=== PATIENT | female | born 1935 | race Caucasian/White ===

== ENCOUNTER → 2016-10-18 | Outpatient (CLI) | payer MEDICARE, OTHER ==
--- NOTE | 2016-10-18 14:03 | BD ---
EXAMINATION TYPE: MG DEXA axial skeleton. DATE OF EXAM: 10/18/2016 1:24 PM COMPARISON: NONE CLINICAL HISTORY: Height: 64 Weight: 174.8 FRAX RISK QUESTIONS: Alcohol (3 or more units per day): NO Family History (Parent hip fracture): NO Glucocorticoids (More than 3mos): YES (Ex: prednisone, prednisolone, methylprednisolone, dexamethasone, and hydrocortisone). History of Fracture in Adulthood: YES Secondary Osteoporosis: 1. Type 1 Diabetes: NO 2. Hyperthyroidism: NO 3. Menopause before 45: NO 4. Malnutrition: NO 5. Chronic liver disease: NO Rheumatoid Arthritis: NO Current Tobacco Use: NO RISK FACTORS HISTORY OF: Hip Fracture (Right/Left): NO Spine Fracture: NO History of Wrist Fracture: NO Surgery to Spine/Hip(right/left)/Wrist (right/left): NO Family History of Osteoporosis: NO Active: NO Diet low in dairy products/other sources of calcium: NO Postmenopausal woman: HYSTERECTOMY AT AGE 47 If Premenopausal, do you have irregular periods: Lost more than 2 inches in height since high school: YES Frequent falls: NO Adrenal Insufficiency: NO MEDICATIONS: Prednisone or other steroids: STEROIDS FOR ASTHMA/ SINUS Additional Medications: HYZAAR EXAM MEASUREMENTS: Bone mineral densitometry was performed using the [employer] System. Bone mineral density as measured about the Lumbar spine is: ----- L1-L4(G/cm2): 1.028 T Score Values are as follows: ----- L2: -2.6 ----- L3: -1.3 ----- L4: 0.3 ----- L1-L4: -1.3 Bone mineral density BASELINE HERE Bone mineral density about the R hip (g/cm2): 0.760 Bone mineral density about the L hip (g/cm2): 0.710 T Score values are as follows: -----R Neck: -2.0 -----L Neck: -2.4 -----R Intertrochanter: -1.7 -----L Intertrochanter: -2.4 Bone mineral density BASELINE HERE IMPRESSION: Osteopenia (T Score between -2.5 and -1 as noted by T score values overall in both hips and low back. There is slightly increased risk of fracture and the patient may be considered for treatment. Re-Screen 1-2 years. NOTE: T-SCORE=SD OF THE YOUNG ADULT MEAN.
== END | disposition home or self-care (01) ==
LOC: RADBDWWP 12:49
PROVIDERS: ATTEND Family Medicine
DX: M85.89 Other specified disorders of bone density and structure, multiple sites (principal)
CPT/HCPCS: 77080

== ENCOUNTER → 2017-04-20 | Outpatient (CLI) | payer MEDICARE, OTHER ==
[~2017-04-20] MED LIST: REGADENOSON 0.4 MG/5 ML SYRINGE IV ONE
--- NOTE | 2017-04-20 11:31 | NM ---
EXAMINATION TYPE: NM stress lexiscan cardiolite DATE OF EXAM: 04/20/2017 COMPARISON: NONE HISTORY: Chest pain TECHNIQUE: After the intravenous administration of 9.7 mCi Tc 99m Sestamibi - Cardiolite resting SPE CT images acquired 45 minutes post injection. The patient received 0.4mg Lexiscan, 24.5 mCi Tc 99m Sestamibi - Stress images obtained [address] injection FINDINGS: Review of stress and rest SPECT images demonstrates no distinct perfusion abnormality. Gated analysi s shows normal wall motion with an estimated left ventricular ejection fraction of 68 %. IMPRESSION: No scintigraphic evidence for reversible ischemia.
--- NOTE | 2017-04-20 12:40 | P.STRESS ---
- Stress Test Note Stress Test Results/Findings: Exam Performed: Exam Date: Height: 0 in Weight: 0 g Protocol: Stage: Duration of Exercise: Resting Heart Rate: Resting Blood Pressure: Maximum Achieved Heart Rate: Maximum Achieved Blood Pressure: 85% PMHR: 100% PMHR: METS: Technologist Comment: Stress Test Results/Findings: Baseline rhythm is sinus mechanism with incomplete right bundle branch block. Patient received injection of Lexiscan, EKG monitoring showed no ischemic ST segment changes. Cardiolite was injected per protocol. Impression: 1. Non diagnostic EKG stress test. 2. Nuclear images will be reported separately.
--- NOTE | 2017-04-21 12:20 | P.STRESS ---
- Stress Test Note Stress Test Results/Findings: Exam Performed: NM stress lexiscan cardiolite Exam Date: 04/20/17 Height: 5 ft 4 in Weight: 79.379 kg Protocol: Lexiscan Stage: N/A Duration of Exercise: 4:00 Resting Heart Rate: 64 Resting Blood Pressure: 151/98 Maximum Achieved Heart Rate: 93 Maximum Achieved Blood Pressure: 163/96 85% PMHR: 118 100% PMHR: 139 METS: N/A Technologist Comment: Stress Test Results/Findings: Baseline rhythm is sinus mechanism with incomplete right bundle branch block. Patient received injection of Lexiscan. EKG monitoring revealed no acute ST segment changes. Cardiolite is injected per protocol. Impression: 1. Nondiagnostic electrocardiographic stress test. 2. Nuclear images will be reported separately.
== END | disposition home or self-care (01) ==
LOC: RADNMMAIN 08:27
PROVIDERS: ATTEND Family Medicine
DX: J45.909 Unspecified asthma, uncomplicated (principal); I10 Essential (primary) hypertension
CPT/HCPCS: 93017; 78452; A9500; J2785

== ENCOUNTER 2018-11-12 12:15 | Inpatient (IN) | payer MEDICARE, OTHER ==
[2018-11-12] MEDS ORDERED: SODIUM CHLORIDE 0.9% 500 ML 500 ML IV STA (12:59)
--- NOTE | 2018-11-12 13:08 | ED ---
General Adult HPI - General Chief complaint: Shortness of Breath Stated complaint: AFIB Time Seen by Provider: 11/12/18 12:33 Source: patient Mode of arrival: EMS Limitations: no limitations - History of Present Illness Initial comments: Dictation was produced using [employer] dictation software. please excuse any grammatical, word or spelling errors. Chief Complaint: 83-year-old female recently diagnosed atrial fibrillation presents with generalized fatigue and weakness. History of Present Illness: Patient is 83-year-old female. She was found to have new onset atrial fibrillation starting 2 weeks ago. Primary care physician Dr. Chicas started her on eliquis and carvedilol. Patient states over the last 2-3 days she's been having progressive weakness. She states that she is so weak that she is having difficulty putting on her clothes. Patient denies any pain complaints. She denies any lower extremity symptoms. She does report that with exertion she becomes slightly short of breath. Denies any cough. No fever, chills or night sweats. The ROS documented in this emergency department record has been reviewed and confirmed by me. Those systems with pertinent positive or negative responses have been documented in the HPI. All other systems are other negative and/or noncontributory. PHYSICAL EXAM: General Impression: Alert and oriented x3, not in acute distress HEENT: Normocephalic atraumatic, extra-ocular movements intact, pupils equal and reactive to light bilaterally, mucous membranes moist. Cardiovascular: irRegularly irregular Chest: Lungs clear to auscultation bilaterally, no rhonchi, no wheeze, no rales Abdomen: Bowel sounds present, abdomen soft, non-tender, non-distended, no organomegaly Musculoskeletal: Pulses present and equal in all extremities, 1+ pitting edema bilateral lower extremities. Motor: Power 5/5 bilaterally, no focal deficits noted Neurological: CN II-XII grossly intact, no focal motor or sensory deficits noted Skin: Intact with no visualized rashes Psych: Normal affect and mood ED course: Patient is 83-year-old female presents with generalized weakness. On arrival shows heart rate 133, rest of vital signs within acceptable limits. EKG shows atrial for ablation with rapid ventricular rate. Patient's symptoms likely secondary to uncontrolled atrial fibrillation. Patient is unable course.CBC, coag panel, metabolic panel, cardiac enzymes are negative. Chest x- ray shows findings of congestive heart failure. Given 5 mg of IV push and metoprolol with improvement of heart rate. Patient continued to be slightly above 110 with a heart rate of 118. Patient given a return half milligrams IV push. Patient's heart rate is controlled. Patient given venous fluids. Patient also provided with by mouth metoprolol. We will have patient admitted for cardiology consultation. Patient will be continued on her eliquis. EKG interpretation: Ventricular rate 137 A. fib with RVR, QRS 102, QTc 462. No ID prolongation, no QTC prolongation, no ST or T-wave changes noted. Overall , this EKG is unremarkable - Related Data Home Medications Medication Instructions Recorded Confirmed Albuterol Inhaler [Ventolin Hfa 2 puff INHALATION RT-Q4H PRN 11/12/18 11/12/18 Inhaler] Beclomethasone Dipropionate [Qvar 2 puff INHALATION RT-BID 11/12/18 11/12/18 80 mcg] Carvedilol [Coreg] 3.125 mg PO BID 11/12/18 11/12/18 Cholecalciferol [Vitamin D3] 1,000 unit PO DAILY 11/12/18 11/12/18 Diclofenac Potassium [Cataflam] 50 mg PO BID PRN 11/12/18 11/12/18 Losartan Potassium [Cozaar] 100 mg PO DAILY 11/12/18 11/12/18 Multivitamins, Thera [Multivitamin 1 tab PO DAILY 11/12/18 11/12/18 (formulary)] Phytonadione [Vitamin K] 5 mg PO DAILY 11/12/18 11/12/18 Rivaroxaban [Xarelto] 20 mg PO DAILY 11/12/18 11/12/18 Allergies Allergy/AdvReac Type Severity Reaction Status Date / Time No Known Allergies Allergy Verified 11/12/18 12:41 Review of Systems ROS Statement: Those systems with pertinent positive or pertinent negative responses have been documented in the HPI. ROS Other: All systems not noted in ROS Statement are negative. Past Medical History Past Medical History: Atrial Fibrillation, Hypertension History of Any Multi-Drug Resistant Organisms: None Reported Past Surgical History: Hysterectomy Additional Past Surgical History / Comment(s): Shoulder sx, R ankle Past Psychological History: No Psychological Hx Reported Smoking Status: Never smoker General Exam Limitations: no limitations Course Vital Signs 02/01/2511/12/18 11/12/18 12:16 14:09 14:32 Temperature 97.5 F L Pulse Rate 133 H 130 H 118 H Respiratory 18 18 18 Rate Blood Pressure 152/116 121/106 141/113 O2 Sat by Pulse 98 97 98 Oximetry Medical Decision Making - Lab Data Result diagrams: 11/12/18 12:18 11/12/18 12:18 Lab Results 11/12/18 11/12/18 11/12/18 Range/Units 12:18 12:18 12:18 WBC 9.5 (3.8-10.6) k/uL RBC 5.32 (3.80-5.40) m/uL Hgb 15.6 (11.4-16.0) gm/dL Hct 48.2 H (34.0-46.0) % MCV 90.5 (80.0-100.0) fL MCH 29.4 (25.0-35.0) pg MCHC 32.4 (31.0-37.0) g/dL RDW 13.5 (11.5-15.5) % Plt Count 397 (150-450) k/uL Neutrophils % 73 % Lymphocytes % 17 % Monocytes % 6 % Eosinophils % 2 % Basophils % 1 % Neutrophils # 7.0 (1.3-7.7) k/uL Lymphocytes # 1.6 (1.0-4.8) k/uL Monocytes # 0.5 (0-1.0) k/uL Eosinophils # 0.2 (0-0.7) k/uL Basophils # 0.1 (0-0.2) k/uL PT (9.0-12.0) sec INR (<1.2) APTT (22.0-30.0) sec Sodium 138 (137-145) mmol/L Potassium 4.8 (3.5-5.1) mmol/L Chloride 105 (98-107) mmol/L Carbon Dioxide 26 (22-30) mmol/L Anion Gap 7 mmol/L BUN 18 H (7-17) mg/dL Creatinine 0.90 (0.52-1.04) mg/dL Est GFR (CKD-EPI)AfAm 69 (>60 ml/min/1.73 sqM) Est GFR (CKD-EPI)NonAf 60 (>60 ml/min/1.73 sqM) Glucose 104 H (74-99) mg/dL Calcium 9.2 (8.4-10.2) mg/dL Magnesium 2.2 (1.6-2.3) mg/dL Total Bilirubin 0.9 (0.2-1.3) mg/dL AST 36 (14-36) U/L ALT 57 H (9-52) U/L Alkaline Phosphatase 60 (38-126) U/L Total Creatine Kinase 54 (30-135) U/L CK-MB (CK-2) 0.7 (0.0-2.4) ng/mL CK-MB (CK-2) Rel Index 1.3 Troponin I <0.012 (0.000-0.034) ng/mL Total Protein 6.5 (6.3-8.2) g/dL Albumin 3.9 (3.5-5.0) g/dL 11/12/18 Range/Units 12:18 WBC (3.8-10.6) k/uL RBC (3.80-5.40) m/uL Hgb (11.4-16.0) gm/dL Hct (34.0-46.0) % MCV (80.0-100.0) fL MCH (25.0-35.0) pg MCHC (31.0-37.0) g/dL RDW (11.5-15.5) % Plt Count (150-450) k/uL Neutrophils % % Lymphocytes % % Monocytes % % Eosinophils % % Basophils % % Neutrophils # (1.3-7.7) k/uL Lymphocytes # (1.0-4.8) k/uL Monocytes # (0-1.0) k/uL Eosinophils # (0-0.7) k/uL Basophils # (0-0.2) k/uL PT 11.2 (9.0-12.0) sec INR 1.1 (<1.2) APTT 24.6 (22.0-30.0) sec Sodium (137-145) mmol/L Potassium (3.5-5.1) mmol/L Chloride (98-107) mmol/L Carbon Dioxide (22-30) mmol/L Anion Gap mmol/L BUN (7-17) mg/dL Creatinine (0.52-1.04) mg/dL Est GFR (CKD-EPI)AfAm (>60 ml/min/1.73 sqM) Est GFR (CKD-EPI)NonAf (>60 ml/min/1.73 sqM) Glucose (74-99) mg/dL Calcium (8.4-10.2) mg/dL Magnesium (1.6-2.3) mg/dL Total Bilirubin (0.2-1.3) mg/dL AST (14-36) U/L ALT (9-52) U/L Alkaline Phosphatase (38-126) U/L Total Creatine Kinase (30-135) U/L CK-MB (CK-2) (0.0-2.4) ng/mL CK-MB (CK-2) Rel Index Troponin I (0.000-0.034) ng/mL Total Protein (6.3-8.2) g/dL Albumin (3.5-5.0) g/dL Disposition Clinical Impression: Atrial fibrillation with RVR Disposition: ADMITTED IP TO THIS HOSP Condition: Fair Referrals: Raine Chicas MD [Primary Care Provider] - 1-2 days Decision Time: 15:27
[2018-11-12] MEDS ORDERED: METOPROLOL TARTRATE 5 MG/5 ML VIAL IVP STA ×2 (13:25→15:24)
--- NOTE | 2018-11-12 13:45 | XR ---
EXAMINATION TYPE: XR chest 2V DATE OF EXAM: 11/12/2018 COMPARISON: NONE TECHNIQUE: PA and lateral views submitted. HISTORY: Shortness of breath FINDINGS: Diffuse interstitial pattern with bilateral consolidation and pleural effusions. Atherosclerotic reeves ge aorta. No pneumothorax. Postsurgical change bilateral shoulder. Degenerative change of the spine. IMPRESSION: 1. Correlate for CHF.
[2018-11-12 13:58] LABS: Basophils # (A) 0.1 k/uL (0-0.2); Basophils % (A) 1 %; Eosinophils # (A) 0.2 k/uL (0-0.7); Eosinophils % (A) 2 %; HCT 48.2 % (34.0-46.0); HGB 15.6 gm/dL (11.4-16.0); Lymphocytes # (A) 1.6 k/uL (1.0-4.8); Lymphocytes % (A) 17 %; MCH 29.4 pg (25.0-35.0); MCHC 32.4 g/dL (31.0-37.0); MCV 90.5 fL (80.0-100.0); Mean Platelet Volume 6.6; Monocytes # (A) 0.5 k/uL (0-1.0); Monocytes % (A) 6 %; Neutrophils % (A) 73 %; Platelet Count 397 k/uL (150-450); RBC 5.32 m/uL (3.80-5.40); RDW 13.5 % (11.5-15.5); WBC 9.5 k/uL (3.8-10.6)
[2018-11-12 14:09] LABS: Albumin 3.9 g/dL (3.5-5.0); Calcium 9.2 mg/dL (8.4-10.2); Magnesium 2.2 mg/dL (1.6-2.3); Potassium 4.8 mmol/L (3.5-5.1); Total Bilirubin 0.9 mg/dL (0.2-1.3); Total Protein 6.5 g/dL (6.3-8.2)
[2018-11-12 14:14] LABS: INR 1.1 (<1.2); Partial Thromboplastin Time 24.6 sec (22.0-30.0); Prothrombin Time 11.2 sec (9.0-12.0)
[2018-11-12 14:20] LABS: Creatine Kinase 54 U/L (30-135)
[2018-11-12 14:33] LABS: Creatine Kinase MB 0.7 ng/mL (0.0-2.4); Troponin I <0.012 ng/mL (0.000-0.034)
[2018-11-12] MEDS ORDERED: METOPROLOL TARTRATE 50 MG TAB PO STA (15:25)
[2018-11-12] MEDS ORDERED: ALBUTEROL NEBULIZED 2.5 MG/3 ML INHALATION PRN (15:39)
--- NOTE | 2018-11-12 15:59 | P.HPIM ---
History of Present Illness H&P Date: 11/12/18 This is a 83-year-old female patient of Dr. Chicas. Patient presented to the hospital with complaints of increased weakness and shortness of breath. Patient states she was recently diagnosed by her PCP approximately 2 weeks ago with atrial fibrillation. At that time patient was started on xarelto and Coreg by her PCP and arrange to see [facility]. Patient states that over the 2 weeks she's been increasing short of breath and chest tightness. Patient does have a significant past medical history for essential hypertension , hysterectomy, asthma and bilateral shoulder surgery. Patient's EKG completed showing A. fib with RVR premature ventricular response. Incomplete right bundle branch block. Per ER patient's menstrual changed to metoprolol. Cardiology services have been consulted. Chest x-ray completed showing correlation for CHF. At this time patient is still complaining of weakness shortness of breath. Patient Xarelto has been resumed. Patient denies nausea vomiting or diarrhea. Patient denies any cough or production. Patient did not denies fever or chills. Denies any urinary burning or frequency Review of Systems please refer to HPI otherwise unremarkable Past Medical History Past Medical History: Atrial Fibrillation, Hypertension History of Any Multi-Drug Resistant Organisms: None Reported Past Surgical History: Hysterectomy Additional Past Surgical History / Comment(s): Shoulder sx, R ankle Past Psychological History: No Psychological Hx Reported Smoking Status: Never smoker Medications and Allergies Home Medications Medication Instructions Recorded Confirmed Type Albuterol Inhaler [Ventolin Hfa 2 puff INHALATION RT-Q4H PRN 11/12/18 11/12/18 History Inhaler] Beclomethasone Dipropionate [Qvar 2 puff INHALATION RT-BID 11/12/18 11/12/18 History 80 mcg] Carvedilol [Coreg] 3.125 mg PO BID 11/12/18 11/12/18 History Cholecalciferol [Vitamin D3] 1,000 unit PO DAILY 11/12/18 11/12/18 History Diclofenac Potassium [Cataflam] 50 mg PO BID PRN 11/12/18 11/12/18 History Losartan Potassium [Cozaar] 100 mg PO DAILY 11/12/18 11/12/18 History Multivitamins, Thera [Multivitamin 1 tab PO DAILY 11/12/18 11/12/18 History (formulary)] Phytonadione [Vitamin K] 5 mg PO DAILY 11/12/18 11/12/18 History Rivaroxaban [Xarelto] 20 mg PO DAILY 11/12/18 11/12/18 History Allergies Allergy/AdvReac Type Severity Reaction Status Date / Time No Known Allergies Allergy Verified 11/12/18 12:41 Physical Exam Vitals: Vital Signs Temp Pulse Resp BP Pulse Ox 11/12/18 14:32 118 H 18 141/113 98 11/12/18 14:09 130 H 18 121/106 97 11/12/18 12:16 97.5 F L 133 H 18 152/116 98 Intake and Output 11/12/18 11/12/18 11/12/18 06:59 14:59 22:59 Other: Weight 79.379 kg Head normocephalic Neck supple Lungs clear to auscultation bilaterally no wheezing or crackles Heart regular rate and rhythm S1-S2, no rub or gallop Abdomen is soft nontender nondistended positive bowel sounds no hepatosplenomegaly Extremities no edema Neuro alert and orientated to 3 Results CBC & Chem 7: 11/12/18 12:18 11/12/18 12:18 Labs: Abnormal Lab Results - Last 24 Hours (Table) 11/12/18 11/12/18 Range/Units 12:18 12:18 Hct 48.2 H (34.0-46.0) % BUN 18 H (7-17) mg/dL Glucose 104 H (74-99) mg/dL ALT 57 H (9-52) U/L Assessment and Plan Assessment: 1. Shortness of breath. This is likely due to patient new-onset A. fib. EKG showing atrial fibrillation with rapid ventricular response. Chest x-ray showing correlation for CHF. BNP has been order. 2. Recently diagnosed atrial fibrillation. Patient currently on xaretlo for anticoagulation. Cardiology services have been consulted. Metroprolol has been added 3. History of essential hypertension 4. History of asthma 5. Increased peripheral edema. BNP has been ordered DVT prophylaxis xarelto. GI prophylaxis Protonix Cardiology and pulmonary services consulted Time with Patient: Greater than 30 (Greater than 60% of the total time spent in counseling and coordination of care. I performed an examination of the patient and discussed their management with the Nurse Practitioner. I have reviewed the Nurse Practitioner's notes and agree with the documented findings and plan of care)
[2018-11-12] MEDS ORDERED: LORATADINE 10 MG TAB PO PRN (20:41)
[2018-11-12] MEDS ORDERED: FUROSEMIDE 10 MG/ML 2 ML VIAL IV ONE (20:42)
[2018-11-12] MEDS: METOPROLOL TARTRATE 25 MG TAB PO SCH (20:58)
[2018-11-12] MEDS: FLUTICASONE 110 MCG INHALER INHALATION SCH (21:54)
[2018-11-13 06:32] LABS: Basophils # (A) 0.1 k/uL (0-0.2); Basophils % (A) 1 %; Eosinophils # (A) 0.2 k/uL (0-0.7); Eosinophils % (A) 2 %; HCT 41.6 % (34.0-46.0); HGB 13.4 gm/dL (11.4-16.0); Lymphocytes # (A) 1.7 k/uL (1.0-4.8); Lymphocytes % (A) 21 %; MCH 29.4 pg (25.0-35.0); MCHC 32.2 g/dL (31.0-37.0); MCV 91.2 fL (80.0-100.0); Mean Platelet Volume 6.7; Monocytes # (A) 0.6 k/uL (0-1.0); Monocytes % (A) 7 %; Neutrophils # (A) 5.4 k/uL (1.3-7.7); Neutrophils % (A) 67 %; Platelet Count 332 k/uL (150-450); RBC 4.56 m/uL (3.80-5.40); RDW 13.6 % (11.5-15.5)
[2018-11-13] MEDS: PANTOPRAZOLE 40 MG TABLET PO SCH (06:40)
[2018-11-13 06:51] LABS: Albumin 2.9 g/dL (3.5-5.0); Calcium 8.5 mg/dL (8.4-10.2); Potassium 3.9 mmol/L (3.5-5.1); Total Bilirubin 0.6 mg/dL (0.2-1.3); Total Protein 5.1 g/dL (6.3-8.2)
[2018-11-13] MEDS: MULTIVITAMINS, THERA 1 EACH TAB PO SCH (08:49)
[2018-11-13] MEDS: METOPROLOL TARTRATE 25 MG TAB PO SCH ×3 (08:49→19:55)
[2018-11-13] MEDS: CHOLECALCIFEROL 1,000 UNIT TAB PO SCH (08:49)
[2018-11-13] MEDS ORDERED: RIVAROXABAN 20 MG TAB PO SCH (09:00)
[2018-11-13] MEDS ORDERED: LOSARTAN 50 MG TAB PO SCH (09:00)
[2018-11-13] MEDS: FLUTICASONE 110 MCG INHALER INHALATION SCH ×2 (09:17→20:46)
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
--- NOTE | 2018-11-13 11:15 | P.PN ---
Subjective Progress Note Date: 11/13/18 This is a 83-year-old female patient of Dr. Chicas. Patient presented to the hospital with complaints of increased weakness and shortness of breath. Patient states she was recently diagnosed by her PCP approximately 2 weeks ago with atrial fibrillation. At that time patient was started on xarelto and Coreg by her PCP and arrange to see [facility]. Patient states that over the 2 weeks she's been increasing short of breath and chest tightness. Patient does have a significant past medical history for essential hypertension , hysterectomy, asthma and bilateral shoulder surgery. Patient's EKG completed showing A. fib with RVR premature ventricular response. Incomplete right bundle branch block. Per ER patient's menstrual changed to metoprolol. Cardiology services have been consulted. Chest x-ray completed showing correlation for CHF. At this time patient is still complaining of weakness shortness of breath. Patient Xarelto has been resumed. Patient denies nausea vomiting or diarrhea. Patient denies any cough or production. Patient did not denies fever or chills. Denies any urinary burning or frequency On 11/13/2018 patient is currently resting in bed. Patient does state some improvement with her shortness of breath and weakness. Heart rate has improved. Awaiting cardiology consult. Patient received 1 dose of IV Lasix yesterday. At this time patient denies chest pain or shortness of breath. Patient denies nausea vomiting or diarrhea. Patient denies any urinary burning or frequency. Objective - Vital Signs Vital signs: Vital Signs Temp 97.0 F L 11/13/18 04:00 Pulse 97 11/13/18 04:00 Resp 18 11/13/18 04:00 BP 117/77 11/13/18 04:00 Pulse Ox 97 11/13/18 04:00 Intake & Output 11/12/18 11/13/18 11/13/18 18:59 06:59 18:59 Intake Total 500 Output Total 1700 Balance 500 -1700 Weight 79.379 kg 81.8 kg Intake: Amount of Fluid Infused ( 500 ml) Output: Urine 1700 Other: Voiding Method Toilet # Voids 0 # Bowel Movements 0 - Exam Head normocephalic Neck supple Lungs clear to auscultation bilaterally no wheezing or crackles Heart regular rate and rhythm S1-S2, no rub or gallop Abdomen is soft nontender nondistended positive bowel sounds no hepatosplenomegaly Extremities +2 peripheral edema Neuro alert and orientated to 3 - Labs CBC & Chem 7: 11/13/18 06:06 11/13/18 06:06 Labs: Abnormal Lab Results - Last 24 Hours (Table) 11/12/18 11/12/18 11/13/18 Range/Units 12:18 12:18 06:06 Hct 48.2 H (34.0-46.0) % Chloride 108 H (98-107) mmol/L BUN 18 H (7-17) mg/dL Glucose 104 H (74-99) mg/dL ALT 57 H (9-52) U/L Total Protein 5.1 L (6.3-8.2) g/dL Albumin 2.9 L (3.5-5.0) g/dL Assessment and Plan Assessment: 1. Shortness of breath. This is likely due to patient new-onset A. fib. EKG showing atrial fibrillation with rapid ventricular response. Chest x-ray showing correlation for CHF. BNP 1850. Cardiology services 2-D echo has been ordered. Patient will be started on IV Lasix twice daily losartan has been decreased to 50 mg daily and beta michelle increased proximal heart control. 2. Recently diagnosed atrial fibrillation. Patient currently on xaretlo for anticoagulation. Cardiology services have been consulted. Metroprolol has been added 3. History of essential hypertension 4. History of asthma 5. Increased peripheral edema. BNP has been ordered. Patient received 1 dose of IV Lasix yesterday. Patient does have slightly more increased edema to right lower extremity. Will order venous Doppler just to rule out DVT DVT prophylaxis xarelto. GI prophylaxis Protonix Cardiology and pulmonary services consulted I performed an examination of the patient and discussed their management with the Nurse Practitioner. I have reviewed the Nurse Practitioner's notes and agree with the documented findings and plan of care
[2018-11-13] MEDS ORDERED: SODIUM CHLORIDE 0.65% NASAL SPRAY 44 ML BTL NASAL PRN (11:19)
--- NOTE | 2018-11-13 13:00 | ECHOF ---
Referral Reason:afib MEASUREMENTS -------- HEIGHT: 162.6 cm WEIGHT: 81.6 kg BP: 117/77 RVIDd: 3.0 cm (< 3.3) IVSd: 1.2 cm (0.6 - 1.1) LVIDd: 4.0 cm (3.9 - 5.3) LVPWd: 1.3 cm (0.6 - 1.1) IVSs: 1.3 cm LVIDs: 3.5 cm LVPWs: 1.7 cm LAESV Index (A-L): 33.00 ml/m Ao Diam: 2.6 cm (2.0 - 3.7) AV Cusp: 1.5 cm (1.5 - 2.6) LA Diam: 4.0 cm (2.7 - 3.8) AR PHT: 518 ms RAP: 10.00 mmHg RVSP: 50.92 mmHg FINDINGS -------- Atrial fibrillation. This was a technically adequate study. The left ventricular size is normal. There is mild concentric left ventricular hypertrophy. Overa ll left ventricular systolic function is mildly impaired with, an EF between 45 - 50 %. Ejection fr action difficult to estimate due to arrhythmia. The right ventricle is normal in size and function. LA is moderately dilated 34-39 ml/m2 RA appears enlarged. Aortic valve is trileaflet and is mildly thickened. There is hrww-[id number]-tjtrfbpt aortic regurgitation. There is no evidence of aortic stenosis. The mitral valve leaflets are mildly thickened. Mild mitral annular calcification present. Modera te mitral regurgitation is present. Mild tricuspid regurgitation present. There is no evidence of pulmonary hypertension. The right v entricular systolic pressure, as measured by Doppler, is 50.92mmHg. Trace/mild (physiologic) pulmonic regurgitation. The aortic root size is normal. The IVC is dilated with normal collapse. There is no pericardial effusion. CONCLUSIONS -------- 1. Atrial fibrillation. 2. This was a technically adequate study. 3. The left ventricular size is normal. 4. There is mild concentric left ventricular hypertrophy. 5. Overall left ventricular systolic function is mildly impaired with, an EF between 45 - 50 %. 6. Ejection fraction difficult to estimate due to arrhythmia. 7. LA is moderately dilated 34-39 ml/m2 8. RA appears enlarged. 9. Aortic valve is trileaflet and is mildly thickened. 10. There is sisc-fl-gfyrbuml aortic regurgitation. 11. There is no evidence of aortic stenosis. 12. The mitral valve leaflets are mildly thickened. 13. Mild mitral annular calcification present. 14. Moderate mitral regurgitation is present. 15. Mild tricuspid regurgitation present. 16. There is no evidence of pulmonary hypertension. 17. The right ventricular systolic pressure, as measured by Doppler, is 50.92mmHg. 18. Trace/mild (physiologic) pulmonic regurgitation. 19. The aortic root size is normal. 20. The IVC is dilated with normal collapse. 21. There is no pericardial effusion. SECOND MATE: Tl Esquivel RDCS
[2018-11-13 13:44] VITALS: BMI 30.9
--- NOTE | 2018-11-13 13:49 | US ---
EXAMINATION TYPE: US venous doppler duplex LE BI DATE OF EXAM: 11/13/2018 12:34 PM COMPARISON: NONE CLINICAL HISTORY: r/o DVT. SIDE PERFORMED: Bilateral TECHNIQUE: The lower extremity deep venous system is examined utilizing real time linear array sonog bella with graded compression, doppler sonography and color-flow sonography. VESSELS IMAGED: External Iliac Vein (EIV) Common Femoral Vein Deep Femoral Vein Greater Saphenous Vein * Femoral Vein Popliteal Vein Small Saphenous Vein * Proximal Calf Veins (* superficial vessels) There is normal flow, compressibility, vascular waveforms. Right Leg: Negative for DVT Left Leg: Negative for DVT IMPRESSION: No evident deep venous thrombosis at or above the knees. Follow-up as indicated.
[2018-11-13] MEDS ORDERED: FLUTICASONE 50MCG/SPRAY NASAL 16GM EA NOSTRIL PRN (14:13)
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
[2018-11-13] MEDS: FUROSEMIDE 10 MG/ML 4 ML VIAL IV SCH ×2 (19:45→19:54)
[2018-11-13] MEDS: AZELASTINE 137MCG/SPRAY NASAL SCH (19:57)
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
[2018-11-14] MEDS: PANTOPRAZOLE 40 MG TABLET PO SCH (06:12)
[2018-11-14 06:30] LABS: Basophils # (A) 0.1 k/uL (0-0.2); Basophils % (A) 1 %; Eosinophils # (A) 0.2 k/uL (0-0.7); Eosinophils % (A) 2 %; HCT 42.1 % (34.0-46.0); HGB 13.8 gm/dL (11.4-16.0); Lymphocytes % (A) 22 %; MCH 29.5 pg (25.0-35.0); MCHC 32.7 g/dL (31.0-37.0); MCV 90.2 fL (80.0-100.0); Mean Platelet Volume 6.1; Monocytes # (A) 0.5 k/uL (0-1.0); Monocytes % (A) 6 %; Neutrophils # (A) 6.1 k/uL (1.3-7.7); Neutrophils % (A) 67 %; Platelet Count 327 k/uL (150-450); RBC 4.67 m/uL (3.80-5.40); RDW 13.4 % (11.5-15.5); WBC 9.1 k/uL (3.8-10.6)
[2018-11-14 06:44] LABS: Albumin 3.2 g/dL (3.5-5.0); Calcium 8.6 mg/dL (8.4-10.2); Potassium 4.1 mmol/L (3.5-5.1); Total Bilirubin 0.6 mg/dL (0.2-1.3); Total Protein 5.5 g/dL (6.3-8.2)
[2018-11-14] MEDS: FLUTICASONE 110 MCG INHALER INHALATION SCH ×2 (09:13→19:09)
--- NOTE | 2018-11-14 10:25 | P.PN ---
Subjective Progress Note Date: 11/14/18 This is a 83-year-old female patient of Dr. Chicas. Patient presented to the hospital with complaints of increased weakness and shortness of breath. Patient states she was recently diagnosed by her PCP approximately 2 weeks ago with atrial fibrillation. At that time patient was started on xarelto and Coreg by her PCP and arrange to see [facility]. Patient states that over the 2 weeks she's been increasing short of breath and chest tightness. Patient does have a significant past medical history for essential hypertension , hysterectomy, asthma and bilateral shoulder surgery. Patient's EKG completed showing A. fib with RVR premature ventricular response. Incomplete right bundle branch block. Per ER patient's menstrual changed to metoprolol. Cardiology services have been consulted. Chest x-ray completed showing correlation for CHF. At this time patient is still complaining of weakness shortness of breath. Patient Xarelto has been resumed. Patient denies nausea vomiting or diarrhea. Patient denies any cough or production. Patient did not denies fever or chills. Denies any urinary burning or frequency On 11/13/2018 patient is currently resting in bed. Patient does state some improvement with her shortness of breath and weakness. Heart rate has improved. Awaiting cardiology consult. Patient received 1 dose of IV Lasix yesterday. At this time patient denies chest pain or shortness of breath. Patient denies nausea vomiting or diarrhea. Patient denies any urinary burning or frequency. On 11/14/2018 patient is alert and oriented resting comfortably in bed. Patient reports significant improvement with her shortness of breath. Patient remains on IV Lasix at this time. Pulmonary and cardiology services are following. At this time patient denies chest pain or shortness of breath. Patient denies nausea vomiting or diarrhea. Patient denies any urinary burning or frequency. Objective - Vital Signs Vital signs: Vital Signs Temp 97.5 F L 11/14/18 04:00 Pulse 75 11/14/18 04:00 Resp 20 11/14/18 04:00 BP 126/56 11/14/18 04:00 Pulse Ox 98 11/14/18 04:00 Intake & Output 11/13/18 11/14/18 11/14/18 18:59 06:59 18:59 Intake Total 540 Balance 540 Weight 81.8 kg 82 kg Intake: Oral 540 Other: Voiding Method Toilet # Voids 0 1 # Bowel Movements 0 - Exam Head normocephalic Neck supple Lungs clear to auscultation bilaterally no wheezing or crackles Heart regular rate and rhythm S1-S2, no rub or gallop Abdomen is soft nontender nondistended positive bowel sounds no hepatosplenomegaly Extremities +2 peripheral edema Neuro alert and orientated to 3 - Labs CBC & Chem 7: 11/14/18 06:07 11/14/18 06:07 Labs: Abnormal Lab Results - Last 24 Hours (Table) 11/14/18 Range/Units 06:07 Total Protein 5.5 L (6.3-8.2) g/dL Albumin 3.2 L (3.5-5.0) g/dL Assessment and Plan Assessment: 1. Shortness of breath. This is likely due to patient new-onset A. fib. EKG showing atrial fibrillation with rapid ventricular response. Chest x-ray showing correlation for CHF. BNP 1850. . Patient will be started on IV Lasix twice daily losartan has been decreased to 50 mg daily and beta michelle increased proximal heart control. 2-D echo completed showing EF of 45-50% with mild/moderate aortic regurg. Patient remains on IV Lasix. Cardiology and pulmonary services are following 2. Recently diagnosed atrial fibrillation. Patient currently on xaretlo for anticoagulation. Cardiology services have been consulted. Metroprolol has been added 3. History of essential hypertension 4. History of asthma 5. Increased peripheral edema. BNP has been ordered. Patient received 1 dose of IV Lasix yesterday. Patient does have slightly more increased edema to right lower extremity. Venous Doppler completed showing negative for DVT. Peripheral edema has improved. Patient maintained on IV Lasix 40 mg twice a day at this time. DVT prophylaxis xarelto. GI prophylaxis Protonix I performed an examination of the patient and discussed their management with the Nurse Practitioner. I have reviewed the Nurse Practitioner's notes and agree with the documented findings and plan of care
[2018-11-14] MEDS: RIVAROXABAN 15 MG TAB PO SCH (12:06)
[2018-11-14] MEDS: LOSARTAN 50 MG TAB PO SCH (12:06)
[2018-11-14] MEDS: MULTIVITAMINS, THERA 1 EACH TAB PO SCH (12:06)
[2018-11-14] MEDS: FUROSEMIDE 10 MG/ML 4 ML VIAL IV SCH ×2 (12:06→20:31)
[2018-11-14] MEDS: CHOLECALCIFEROL 1,000 UNIT TAB PO SCH (12:06)
[2018-11-14] MEDS: AZELASTINE 137MCG/SPRAY NASAL SCH ×2 (12:07→20:31)
[2018-11-14] MEDS: METOPROLOL TARTRATE 25 MG TAB PO SCH ×3 (12:07→22:30)
--- NOTE | 2018-11-14 14:12 | P.PN ---
Subjective Progress Note Date: 11/14/18 This is a pleasant 83-year-old female with documented history of hypertension, recent diagnosis about a week ago of atrial fibrillation for which the patient was initiated on Coreg and xarelto. According to the patient , she has been experiencing symptoms of progressive weakness with associated shortness of breath and significant bilateral lower extremity edema. She states that she had surgery in April of last year, following that she noticed herself to be short of breath. It was noted at that time that her heart rate was in the 120 range, they felt it was also secondary to nasal congestion. Upon return back to [place], she states that she went to see her primary care doctor because her symptoms of shortness of breath continued to worsen. She had initially been seen in the walk-in clinic and was started on steroids, after seeing her primary care, she put her on a Medrol Dosepak. Initially she states that she started to feel better however shortly thereafter became even more short of breath, and very weak. Positive PND and orthopnea she went again to see her primary care doctor approximately a week ago, and EKG was performed at that time which revealed atrial fibrillation with a rapid ventricular response. Patient was started on xarelto and Coreg. Her symptoms of peripheral edema, as well as shortness of breath and weakness continued to worsen, she called her primary care doctor who then advised the patient to come to the emergency room for further evaluation and treatment. Her blood pressure on arrival here was 152/116, heart rate in the 130 to 140 range, 98% on 2 L of oxygen. EKG on admission here showed atrial fibrillation with a rapid ventricular response, incomplete right bundle branch block pattern and occasional PVC. Her Coreg was discontinued in the emergency room and patient was changed over to metoprolol. Patient was also given a 500 mL fluid bolus in the emergency room. Chest x-ray revealed congestive heart failure. White blood cell count 8.0, hemoglobin 13.4, platelet count 332. Sodium 138, potassium 3.9, BUN 16, and creatinine 0.8. Troponin 0.012, BNP 1850. At the time of my examination this morning, patient is sitting up at her bedside. She continues to be in atrial fibrillation with a heart rate around 100 this morning. 11/14/2018 Patient seen and examined this morning, diuresing well on IV Lasix, overall states she's feeling significantly better today. Still continues to have at least one plus bilateral peripheral edema. Echocardiogram with Doppler study was performed which revealed an ejection fraction of 45-50%. Blood pressure 126 /50 with a heart rate in the 70s, 98% on room air. White blood cell count 9.1, hemoglobin 13.8, platelet count 327. Sodium 140, potassium 4.1, BUN 16 and creatinine 0.9. Objective - Vital Signs Vital signs: Vital Signs Temp 97.5 F L 11/14/18 04:00 Pulse 75 11/14/18 04:00 Resp 20 11/14/18 04:00 BP 126/56 11/14/18 04:00 Pulse Ox 98 11/14/18 04:00 Intake & Output 11/13/18 11/14/18 11/14/18 18:59 06:59 18:59 Intake Total 540 Balance 540 Weight 81.8 kg 82 kg Intake: Oral 540 Other: Voiding Method Toilet # Voids 0 1 2 # Bowel Movements 0 - Exam PHYSICAL EXAMINATION: GENERAL: 83-year-old female in no acute distress at the time of my examination HEENT: Head is atraumatic, normocephalic. Pupils equal, round. Sclera anicteric. Conjunctiva are clear. Mucous membranes of the mouth are moist. Neck is supple. There is elevated jugular venous pressure. No carotid bruit is heard. HEART EXAMINATION: Heart S1-S2 irregularly irregular a systolic murmur is heard CHEST EXAMINATION: Lungs reveal improvement in air entry to bilateral bases . ABDOMEN: Soft, obese, nontender. Bowel sounds are heard. No organomegaly noted. EXTREMITIES: 2+ peripheral pulses with 1+ evidence of peripheral edema . NEUROLOGIC patient is awake, alert and oriented 3 . - Labs CBC & Chem 7: 11/14/18 06:07 11/14/18 06:07 Labs: Abnormal Lab Results - Last 24 Hours (Table) 11/14/18 Range/Units 06:07 Total Protein 5.5 L (6.3-8.2) g/dL Albumin 3.2 L (3.5-5.0) g/dL Assessment and Plan Plan: Assessment and plan #1 atrial fibrillation with rapid ventricular response, unsure if it is chronic or paroxysmal, new diagnosis approximately a week ago, on Xarelto for anticoagulation #2 congestive heart failure, likely exacerbated by A. fib with RVR, LV function unknown #3 accelerated hypertension Plan Echocardiogram with Doppler study was performed which revealed an ejection fraction of 45-50%. This places point in time we will continue the patient on current dose of IV Lasix, continue to monitor intake and output along with daily weights and daily lytes BUN and creatinine. We will also repeat a chest x -ray tomorrow. DNP note has been reviewed, I agree with a documented findings and plan of care. Patient was seen and examined.
--- NOTE | 2018-11-14 16:58 | XR ---
EXAMINATION TYPE: XR chest 2V DATE OF EXAM: 11/14/2018 COMPARISON: November 12, 2018 HISTORY: Atrial fibrillation TECHNIQUE: Frontal and lateral views of the chest are obtained. FINDINGS: There is pulmonary vascular congestion. Heart is enlarged. There is blunting of the costop hrenic angles. There is bilateral shoulder prosthesis. There are chest leads. IMPRESSION: Congestive heart failure unchanged. Small pleural effusions.
--- NOTE | 2018-11-14 18:37 | P.PN ---
Subjective Progress Note Date: 11/14/18 Principal diagnosis: A. fib RVR This is a 83-year-old white female patient of Dr. Chcias, who presented to the emergency department on 11/12/2018 for evaluation of generalized weakness, fatigue, lower extremity swelling. Patient went to the urgent care clinic 2 weeks ago, with complaints of shortness of breath, nasal congestion, she was found to be in the new onset atrial fibrillation, was started on Eliquis on carvedilol by her primary care physician. She had been progressively weak, with worsening lower extremity edema. No complaints of chest pain, patient does get some shortness of breath with walking, but no fever or chills, no cough , no hemoptysis, no chest congestion. Patient has a history of chronic bronchial asthma, mild intermittent, has not been hospitalized for acute asthma exacerbation, never been intubated. Patient had the surgery on her bilateral shoulders is months ago in [place], she states ever since then she has been having increased nasal congestion. She had been on Flonase for that. Nasal drainage is described as white. Has a history of nasal repairs related to history of trauma. She had seen a coverage specialist rn Dr. Daugherty from the [facility], and was diagnosed with asthma, patient is a lifetime nonsmoker. He is on a combination of Qvar and Ventolin, not on any oxygen at home. Chest x-ray was completed, and showed diffuse interstitial pattern with bilateral consolidation and pleural effusion changes most compatible with congestive heart failure and fluid overload. EKG showed A. fib with RVR at a rate of 137 BPM. Echocardiogram showed mild concentric left ventricular hypertrophy, with an EF between 45-50%, mild to moderate aortic regurgitation, no evidence of aortic stenosis, moderate mitral regurgitation, right ventricular systolic pressure was 50.9 mmHg, with mild tricuspid regurgitation. Labs showed white blood cell count of 9.5, hemoglobin of 15.6, INR is 1.1, sodium was 138, potassium is 4.8, chloride was 105, CO2 is 26, BUN was 18 creatinine was 0.90, cardiac enzymes and troponins were negative 1, proBNP was 1850. Patient is afebrile, currently she is on 2 L per nasal cannula her pulse ox is 98%. Cardiology has evaluated the patient, currently her rate is better controlled, she is getting IV diuretics. She is on metoprolol for rate control. No wheezing, no chest congestion, her asthma seems to be stable right now On Nov 14 2018 patient seen in follow-up. Awake and alert, in no acute distress , sounds are positive for a few scattered rhonchi, no wheezing, patient is on IV diuretics, diuresing, her A. fib is better controlled, rate is 69. No fever or chills, yesterday patient was started on nasal saline rinses, and Astelin nasal spray for nasal congestion, today she states she is less congested. Objective - Vital Signs Vital signs: Vital Signs Temp 97.5 F L 11/14/18 04:00 Pulse 81 11/14/18 16:00 Resp 20 11/14/18 16:00 BP 127/56 11/14/18 16:00 Pulse Ox 8 L 11/14/18 16:00 Intake & Output 11/13/18 11/14/18 11/14/18 18:59 06:59 18:59 Intake Total 540 Balance 540 Weight 81.8 kg 82 kg Intake: Oral 540 Other: Voiding Method Toilet # Voids 0 1 2 # Bowel Movements 0 - Exam GENERAL EXAM: Alert, pleasant, 83-year-old white female patient, comfortable in no apparent distress. HEAD: Normocephalic/atraumatic. EYES: Normal reaction of pupils, equal size. Conjunctiva pink, sclera white. NOSE: Clear with pink turbinates. THROAT: No erythema or exudates. NECK: No masses, no JVD, no thyroid enlargement, no adenopathy. CHEST: No chest wall deformity. Symmetrical expansion. LUNGS: Equal air entry with few rhonchi CVS: Irregular rate and rhythm, normal S1 and S2, no gallops, no murmurs, no rubs ABDOMEN: Soft, nontender. No hepatosplenomegaly, normal bowel sounds, no guarding or rigidity. EXTREMITIES: No clubbing, no edema, no cyanosis, 2+ pulses and upper and lower extremities. MUSCULOSKELETAL: Muscle strength and tone normal. SPINE: No scoliosis or deformity SKIN: No rashes CENTRAL NERVOUS SYSTEM: Alert and oriented -3. No focal deficits, tone is normal in all 4 extremities. PSYCHIATRIC: Alert and oriented -3. Appropriate affect. Intact judgment and insight. - Labs CBC & Chem 7: 11/14/18 06:07 11/14/18 06:07 Labs: Abnormal Lab Results - Last 24 Hours (Table) 11/14/18 Range/Units 06:07 Total Protein 5.5 L (6.3-8.2) g/dL Albumin 3.2 L (3.5-5.0) g/dL Assessment and Plan Plan: Assessment: #1. A. fib with rapid ventricular response #2. Recent diagnosis of A. fib, and patient had been started on anticoagulation in the outpatient setting 2 weeks ago #3. Acute exacerbation of congestive heart failure, an echocardiogram showed EF of 45-50%, [id number] aortic regurgitation, no aortic stenosis, moderate mitral regurgitation, pulmonary hypertension with right-sided pressures of 50.9 mmHg #4. History of mild intermittent bronchial asthma, stable #5. Hypertension #6. Lifetime nonsmoker #7. Osteoarthritis #8. Nasal congestion Plan: Continue with current medical treatment, asthma stable, patient is diuresing, heart rate is better controlled. Oral anticoagulation was started. We'll follow on as-needed basis. I performed a history & physical examination of the patient and discussed their management with my nurse practitioner, Xiomara Ibrahim. I reviewed the nurse practitioner's note and agree with the documented findings and plan of care. Lung sounds are basilar crackles. The findings and the impression was discussed with the patient. I attest to the documentation by the nurse practitioner. Time with Patient: Less than 30
[2018-11-15] MEDS: PANTOPRAZOLE 40 MG TABLET PO SCH (06:22)
[2018-11-15 07:50] LABS: Basophils # (A) 0.1 k/uL (0-0.2); Basophils % (A) 1 %; Eosinophils # (A) 0.2 k/uL (0-0.7); Eosinophils % (A) 2 %; HGB 13.5 gm/dL (11.4-16.0); Lymphocytes # (A) 2.1 k/uL (1.0-4.8); Lymphocytes % (A) 24 %; MCHC 32.9 g/dL (31.0-37.0); Mean Platelet Volume 6.1; Monocytes # (A) 0.7 k/uL (0-1.0); Monocytes % (A) 8 %; Neutrophils # (A) 5.5 k/uL (1.3-7.7); Neutrophils % (A) 62 %; Platelet Count 316 k/uL (150-450); RDW 13.5 % (11.5-15.5); WBC 8.8 k/uL (3.8-10.6)
[2018-11-15 08:09] LABS: Calcium 8.3 mg/dL (8.4-10.2); Potassium 3.9 mmol/L (3.5-5.1); Total Bilirubin 0.6 mg/dL (0.2-1.3); Total Protein 5.2 g/dL (6.3-8.2)
[2018-11-15] MEDS: METOPROLOL TARTRATE 25 MG TAB PO SCH ×2 (08:35→14:58)
[2018-11-15] MEDS: LOSARTAN 50 MG TAB PO SCH (08:35)
[2018-11-15] MEDS: FUROSEMIDE 10 MG/ML 4 ML VIAL IV SCH (08:35)
[2018-11-15] MEDS: CHOLECALCIFEROL 1,000 UNIT TAB PO SCH (08:35)
[2018-11-15] MEDS: RIVAROXABAN 15 MG TAB PO SCH (08:36)
[2018-11-15] MEDS: MULTIVITAMINS, THERA 1 EACH TAB PO SCH (08:36)
[2018-11-15] MEDS: AZELASTINE 137MCG/SPRAY NASAL SCH (08:37)
[2018-11-15 08:41] VITALS: TEMP 97.3
[2018-11-15] MEDS: FLUTICASONE 110 MCG INHALER INHALATION SCH (08:45)
[2018-11-15 12:26] VITALS: BP 116/74; PULSE 88; RESP 20
--- NOTE | 2018-11-15 12:33 | P.PN ---
Subjective Progress Note Date: 11/15/18 This is a pleasant 83-year-old female with documented history of hypertension, recent diagnosis about a week ago of atrial fibrillation for which the patient was initiated on Coreg and xarelto. According to the patient , she has been experiencing symptoms of progressive weakness with associated shortness of breath and significant bilateral lower extremity edema. She states that she had surgery in April of last year, following that she noticed herself to be short of breath. It was noted at that time that her heart rate was in the 120 range, they felt it was also secondary to nasal congestion. Upon return back to [place], she states that she went to see her primary care doctor because her symptoms of shortness of breath continued to worsen. She had initially been seen in the walk-in clinic and was started on steroids, after seeing her primary care, she put her on a Medrol Dosepak. Initially she states that she started to feel better however shortly thereafter became even more short of breath, and very weak. Positive PND and orthopnea she went again to see her primary care doctor approximately a week ago, and EKG was performed at that time which revealed atrial fibrillation with a rapid ventricular response. Patient was started on xarelto and Coreg. Her symptoms of peripheral edema, as well as shortness of breath and weakness continued to worsen, she called her primary care doctor who then advised the patient to come to the emergency room for further evaluation and treatment. Her blood pressure on arrival here was 152/116, heart rate in the 130 to 140 range, 98% on 2 L of oxygen. EKG on admission here showed atrial fibrillation with a rapid ventricular response, incomplete right bundle branch block pattern and occasional PVC. Her Coreg was discontinued in the emergency room and patient was changed over to metoprolol. Patient was also given a 500 mL fluid bolus in the emergency room. Chest x-ray revealed congestive heart failure. White blood cell count 8.0, hemoglobin 13.4, platelet count 332. Sodium 138, potassium 3.9, BUN 16, and creatinine 0.8. Troponin 0.012, BNP 1850. At the time of my examination this morning, patient is sitting up at her bedside. She continues to be in atrial fibrillation with a heart rate around 100 this morning. 11/14/2018 Patient seen and examined this morning, diuresing well on IV Lasix, overall states she's feeling significantly better today. Still continues to have at least one plus bilateral peripheral edema. Echocardiogram with Doppler study was performed which revealed an ejection fraction of 45-50%. Blood pressure 126 /50 with a heart rate in the 70s, 98% on room air. White blood cell count 9.1, hemoglobin 13.8, platelet count 327. Sodium 140, potassium 4.1, BUN 16 and creatinine 0.9. 11/15/2018 Patient seen and examined this morning, doing very well overall, breathing is stable. Blood pressure 116/70 with a heart rate in the 80s, 95% on room air. White blood cell count 8.8, hemoglobin 13.5, platelet count 316. Sodium 139, potassium 3.9, BUN 16 and creatinine 0.8. Objective - Vital Signs Vital signs: Vital Signs Temp 97.3 F L 11/15/18 12:22 Pulse 88 11/15/18 12:26 Resp 20 11/15/18 12:26 BP 116/74 11/15/18 12:22 Pulse Ox 95 11/15/18 12:22 Intake & Output 11/14/18 11/15/18 11/15/18 18:59 06:59 18:59 Intake Total 100 460 Balance 100 460 Weight 81.5 kg Intake: Oral 100 460 Other: Voiding Method Toilet Toilet # Voids 2 3 1 - Exam PHYSICAL EXAMINATION: GENERAL: 83-year-old female in no acute distress at the time of my examination HEENT: Head is atraumatic, normocephalic. Pupils equal, round. Sclera anicteric. Conjunctiva are clear. Mucous membranes of the mouth are moist. Neck is supple. There is elevated jugular venous pressure. No carotid bruit is heard. HEART EXAMINATION: Heart S1-S2 irregularly irregular a systolic murmur is heard CHEST EXAMINATION: Lungs reveal improvement in air entry to bilateral bases . ABDOMEN: Soft, obese, nontender. Bowel sounds are heard. No organomegaly noted. EXTREMITIES: 2+ peripheral pulses with 1+ evidence of peripheral edema . NEUROLOGIC patient is awake, alert and oriented 3 . - Labs CBC & Chem 7: 11/15/18 07:21 11/15/18 07:21 Labs: Abnormal Lab Results - Last 24 Hours (Table) 11/15/18 Range/Units 07:21 Carbon Dioxide 32 H (22-30) mmol/L Calcium 8.3 L (8.4-10.2) mg/dL Total Protein 5.2 L (6.3-8.2) g/dL Albumin 3.0 L (3.5-5.0) g/dL Assessment and Plan Plan: Assessment and plan #1 atrial fibrillation with rapid ventricular response, unsure if it is chronic or paroxysmal, new diagnosis approximately a week ago, on Xarelto for anticoagulation #2 congestive heart failure, likely exacerbated by A. fib with RVR, LV function unknown #3 accelerated hypertension Plan Echocardiogram with Doppler study was performed which revealed an ejection fraction of 45-50%. From cardiology's perspective, we'll discontinue the patient's IV Lasix and put her on oral diuretics today. She may be able to be discharged once cleared by primary and we will make her a follow-up appointment to see Dr. Sullivan in the office post discharge. DNP note has been reviewed, I agree with a documented findings and plan of care. Patient was seen and examined.
--- NOTE | 2018-11-15 14:23 | P.DS ---
Providers Date of admission: 11/12/18 15:27 Expected date of discharge: 11/15/18 Attending physician: Mega Castelan Consults: 11/12/18 15:27 Consult Physician Routine Consulting Provider: Hannah Sullivan Consult Reason/Comments: afib rvr Do you want consulting provider notified?: Yes 11/12/18 15:56 Consult Physician Routine Consulting Provider: Herminia James Consult Reason/Comments: sob of breath. asthma Do you want consulting provider notified?: Yes Primary care physician: Raine Chicas Hospital Course: Discharge diagnosis 1. Shortness of breath. This is likely due to patient new-onset A. fib. EKG showing atrial fibrillation with rapid ventricular response. Chest x-ray showing correlation for CHF. BNP 1850. Patient will be started on IV Lasix twice daily losartan has been decreased to 50 mg daily and beta michelle increased proximal heart control. 2-D echo completed showing EF of 45-50% with mild/moderate aortic regurg. Patient remains on IV Lasix. Per cardiology services patient has been taken off IV Lasix and switch to by mouth Lasix. Patient has been cleared for discharge from cardiology services 2. Recently diagnosed atrial fibrillation. Patient currently on xaretlo for anticoagulation. Cardiology services have been consulted. Metroprolol has been added per cardiology along with decreased dose of Cozaar. 3. History of essential hypertension 4. History of asthma 5. Increased peripheral edema. BNP has been ordered. Patient received 1 dose of IV Lasix yesterday. Patient does have slightly more increased edema to right lower extremity. Venous Doppler completed showing negative for DVT. Peripheral edema has improved. Patient maintained on IV Lasix 40 mg twice a day at this time. Hospital course This is a 83-year-old female patient of Dr. Chicas. Patient presented to the hospital with complaints of increased weakness and shortness of breath. Patient states she was recently diagnosed by her PCP approximately 2 weeks ago with atrial fibrillation. At that time patient was started on xarelto and Coreg by her PCP and arrange to see [facility]. Patient states that over the 2 weeks she's been increasing short of breath and chest tightness. Patient does have a significant past medical history for essential hypertension , hysterectomy, asthma and bilateral shoulder surgery. Patient's EKG completed showing A. fib with RVR premature ventricular response. Incomplete right bundle branch block. Per ER patient's menstrual changed to metoprolol. Cardiology services have been consulted. Chest x-ray completed showing correlation for CHF. At this time patient is still complaining of weakness shortness of breath. Patient Xarelto has been resumed. Patient denies nausea vomiting or diarrhea. Patient denies any cough or production. Patient did not denies fever or chills. Denies any urinary burning or frequency On 11/13/2018 patient is currently resting in bed. Patient does state some improvement with her shortness of breath and weakness. Heart rate has improved. Awaiting cardiology consult. Patient received 1 dose of IV Lasix yesterday. At this time patient denies chest pain or shortness of breath. Patient denies nausea vomiting or diarrhea. Patient denies any urinary burning or frequency. On 11/14/2018 patient is alert and oriented resting comfortably in bed. Patient reports significant improvement with her shortness of breath. Patient remains on IV Lasix at this time. Pulmonary and cardiology services are following. At this time patient denies chest pain or shortness of breath. Patient denies nausea vomiting or diarrhea. Patient denies any urinary burning or frequency. On 11/15/2018 patient is alert and oriented 3 resting in bed. Patient states significant improvement with her shortness of breath. Patient states she feels ready to be DC'd home. IV Lasix has been switched to by mouth Lasix. Metroprolol has been added for adequately controlled patient remains on Xarelto for anticoagulation. This time patient denies chest pain or shortness of breath. Patient denies nausea vomiting or diarrhea. Patient denies any urinary burning or frequency. CMP will be ordered for 4 days. Patient to follow-up with PCP I performed an examination of the patient and discussed their management with the Nurse Practitioner. I have reviewed the Nurse Practitioner's notes and agree with the documented findings and plan of care Patient Condition at Discharge: Stable Plan - Discharge Summary Discharge Rx Participant: No New Discharge Prescriptions: New Furosemide [Lasix] 40 mg PO BID@0900,1600 30 Days #60 tab Losartan [Cozaar] 50 mg PO DAILY 30 Days #30 tab Metoprolol Tartrate [Lopressor] 25 mg PO TID 30 Days #90 tab Continue Multivitamins, Thera [Multivitamin (formulary)] 1 tab PO DAILY Cholecalciferol [Vitamin D3] 1,000 unit PO DAILY Albuterol Inhaler [Ventolin Hfa Inhaler] 2 puff INHALATION RT-Q4H PRN PRN Reason: Shortness Of Breath Diclofenac Potassium [Cataflam] 50 mg PO BID PRN PRN Reason: Pain Beclomethasone Dipropionate [Qvar 80 mcg] 2 puff INHALATION RT-BID Rivaroxaban [Xarelto] 20 mg PO DAILY Flunisolide Nasal [place] [Nasalide] 2 spray EA NOSTRIL BID Discontinued Phytonadione [Vitamin K] 5 mg PO DAILY Carvedilol [Coreg] 3.125 mg PO BID Losartan Potassium [Cozaar] 100 mg PO DAILY Discharge Medication List Albuterol Inhaler [Ventolin Hfa Inhaler] 2 puff INHALATION RT-Q4H PRN 11/12/18 [ History] Beclomethasone Dipropionate [Qvar 80 mcg] 2 puff INHALATION RT-BID 11/12/18 [ History] Cholecalciferol [Vitamin D3] 1,000 unit PO DAILY 11/12/18 [History] Diclofenac Potassium [Cataflam] 50 mg PO BID PRN 11/12/18 [History] Multivitamins, Thera [Multivitamin (formulary)] 1 tab PO DAILY 11/12/18 [History ] Rivaroxaban [Xarelto] 20 mg PO DAILY 11/12/18 [History] Flunisolide Nasal [place] [Nasalide] 2 spray EA NOSTRIL BID 11/13/18 [History] Furosemide [Lasix] 40 mg PO BID@0900,1600 30 Days #60 tab 11/15/18 [Rx] Losartan [Cozaar] 50 mg PO DAILY 30 Days #30 tab 11/15/18 [Rx] Metoprolol Tartrate [Lopressor] 25 mg PO TID 30 Days #90 tab 11/15/18 [Rx] Follow up Appointment(s)/Referral(s): [facility] [Provider Group] - 1 Week Raine Chicas MD [Primary Care Provider] - 1-2 days Patient Instructions/Handouts: A-fib (Atrial Fibrillation) (DC) Activity/Diet/Wound Care/Special Instructions: Activity as tolerated Diet heart healthy Discharge Disposition: HOME SELF-CARE
[2018-11-15] MEDS ORDERED: FUROSEMIDE 40 MG TAB PO SCH (16:00)
--- NOTE | 2018-11-15 17:20 | CDI ---
Documentation Clarification Form Date: 11/15/2018 5:08:55 PM From: Amber Tam RN, CCDS Admit Date: 11/12/2018 3:27:00 PM Patient Name: Yue High Visit Number: [id number] Discharge Date: ATTENTION: The Clinical Documentation Specialists (CDI) and [facility] Coding Staff appreciate your assistance in clarifying documentation. Please respond to the clarification below the line at the bottom and electronically sign. The CDI & [facility] Coding staff will review the response and follow-up if needed. Please note: Queries are made part of the Legal Health Record. If you have any questions, please contact the author of this message via ITS. Dr. Mega Castelan CHF is documented in the progress notes and discharge summary History/Risk Factors: Hypertension, Clinical Indicators: Present with shortness of breath found now onset atrial fibrillation with rapid ventricular response She had increased peripheral edema VS/Pulse OX: 156/116 113 18 97.5 98 % RA BNP: 1850 Echocardiogram Results: EF 45-50 % Chest X Ray: Correlation for CHF 11/13/17 Pulmonary consult: acute exacerbation or congestive heart failure , EF of 45-50 % Treatment: Lasix IV In your professional opinion, can you please clarify the acuity and type of CHF if known? Systolic Heart Failure: Acute Chronic Acute on Chronic Systolic & Diastolic Heart Failure: Acute Chronic Acute on Chronic Heart Failure Unable to Determine Other, please specify (Last Revision: January 2018) MTDD
== END 2018-11-15 16:57 | disposition home or self-care (01) | DRG 308 ==
LOC: EC 12:15 → 3SCARD 15:27
PROVIDERS: ADMIT Internal Medicine; ATTEND Internal Medicine
DX: I48.2 Chronic atrial fibrillation (principal); I50.23 Acute on chronic systolic (congestive) heart failure; Z79.01 Long term (current) use of anticoagulants; I08.3 Combined rheumatic disorders of mitral, aortic and tricuspid valves; I11.0 Hypertensive heart disease with heart failure; I45.10 Unspecified right bundle-branch block; J45.20 Mild intermittent asthma, uncomplicated; M19.90 Unspecified osteoarthritis, unspecified site; M85.80 Other specified disorders of bone density and structure, unspecified site; Z79.899 Other long term (current) drug therapy; Z82.5 Family history of asthma and other chronic lower respiratory diseases; Z83.3 Family history of diabetes mellitus; Z90.710 Acquired absence of both cervix and uterus; Z82.3 Family history of stroke; I49.3 Ventricular premature depolarization; I27.20 Pulmonary hypertension, unspecified
CPT/HCPCS: 36415; 71046; 80053; 82550; 82553; 83735; 83880; 84443; 84484; 85025; 85610; 85730; 93005; 93306; 93970; 94640; 96361; 96374; 96376; 99285

== ENCOUNTER → 2018-11-19 | Outpatient (CLI) | payer MEDICARE, OTHER ==
[2018-11-19 17:19] LABS: Albumin 3.8 g/dL (3.80-4.90); Anion Gap 11.3 mmol/L (4.00-12.00); Calcium 9.4 mg/dL (8.7-10.3); Carbon Dioxide 29.7 mmol/L (21.6-31.8); Globulin 1.9 g/dL (1.6-3.3); Potassium 4.6 mmol/L (3.5-5.5); Total Bilirubin 0.6 mg/dL (0.2-1.2); Total Protein 5.7 g/dL (6.2-8.2)
== END | disposition home or self-care (01) ==
LOC: LABWHC1 08:06
PROVIDERS: ATTEND Nurse Practitioner
DX: I48.2 Chronic atrial fibrillation (principal); I50.23 Acute on chronic systolic (congestive) heart failure
CPT/HCPCS: 36415; 80053